=== PATIENT | male | born 1945 | race Caucasian/White ===

== ENCOUNTER → 2017-06-13 | Outpatient (CLI) | payer OTHER, BC ==
[~2017-06-13] MED LIST: ASPEC81 PO; ATOR-24 PO; CHOL100010 PO; COEN1CAP PO; IBUP-1050 PO; LISI20TA55 PO
== END | disposition home or self-care (01) ==
LOC: C.RDSM 10:35
PROVIDERS: ATTEND Physical Medicine & Rehabilitation Sports Medicine
DX: M19.072 Primary osteoarthritis, left ankle and foot (principal)

== ENCOUNTER → 2018-04-17 | Outpatient (CLI) | payer OTHER, BC ==
--- NOTE | 2018-04-17 08:50 | DIAGNOSTIC IMAGING REPORT ---
LUMBAR SPINE W/O CONTRAST CLINICAL HISTORY: 73 years-old Male with LOW BACK PAIN. Acute low back pain. COMPARISON: Lumbar spine MRI 12/08/2011. TECHNIQUE: Multiplanar, multi sequence MRI of the lumbar spine was performed without intravenous contrast. 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 Mild nonspecific bilateral perinephric stranding. There is no acute fracture or subluxation. Modic type I endplate degenerative changes along the anterosuperior margins of the L2 and L3 vertebral bodies. Conus medullaris terminates at the L1-L2 level. Signal within the imaged thoracic spinal cord appears normal. Cauda equina appear to be within normal limits. No aortic aneurysm or pathologically enlarged lymph nodes identified. 1.4 cm T1 and T2 hyperintense lesion of the L2 vertebral body suggests hemangioma or area of focal fatty marrow. T12-L1: Mild intervertebral disc space narrowing with circumferential annular disc bulge and mild facet arthrosis. Mild flattening of the ventral thecal sac without significant central canal or foraminal narrowing on the sagittal images alone. L1-L2: Mild intervertebral disc space narrowing with circumferential annular disc bulge, ligamentum flavum thickening and moderate facet arthrosis. Findings cause mild central canal and mild left foraminal narrowing. The right foramen is patent. L2-L3: Spondylitic spurring with circumferential annular disc bulge, ligamentum flavum thickening and moderate facet arthrosis. Thecal sac is narrowed to 7 mm in AP dimension resulting in moderate central canal, moderate right and mild to moderate left foraminal stenosis. L3-L4: Small circumferential annular disc bulge with ligamentum flavum thickening and moderate facet arthrosis. Flattening of the ventral thecal sac without significant central canal stenosis. Mild to moderate bilateral foraminal narrowing. L4-L5: Small posterior disc bulge with ligamentum flavum thickening and moderate facet arthrosis. Flattening of the ventral thecal sac. Mild to moderate right and mild left foraminal stenosis. L5-S1: Moderate to severe facet arthrosis with ligamentum flavum thickening. No central canal or foraminal narrowing. IMPRESSION: 1. At L2-L3, spondylitic spurring with circumferential annular disc bulge, ligamentum flavum thickening and moderate facet arthrosis causes moderate central canal, moderate right and mild to moderate left foraminal stenosis. 2. Mild central canal stenosis at L1-L2 secondary to circumferential annular disc bulge, moderate facet arthrosis and ligamentum flavum thickening. 3. Multilevel foraminal narrowing as detailed above. 4. No acute fracture or subluxation. 5. Modic type I endplate degenerative changes at L2 and L3. The above report was generated using voice recognition software. It may contain grammatical, syntax or spelling errors. Dictated: 04/17/2018 8:17 AM Transcribed: 04/17/2018 8:49 AM [email or web address] Electronically signed by: Hany Whitehead M.D. 04/17/2018 9:04 AM Dictated Date/Time: 04/17/2018 8:17 AM
== END | disposition home or self-care (01) ==
LOC: C.MRI 07:19
PROVIDERS: ATTEND Physical Medicine & Rehabilitation
DX: M54.5 Low back pain (principal)